=== PATIENT | female | born 1985 | race Caucasian/White ===

== ENCOUNTER 2024-10-31 09:55 | Emergency (ER) | payer BC, SELFPAY ==
[2024-10-31 10:06] VITALS: BP 120/87
[2024-10-31] MEDS: DECADRON 10 MG PO (10:50)
[2024-10-31 10:51] VITALS: BMI 24.9
--- NOTE | 2024-10-31 12:16 | ED.SKININJ ---
HPI-Injury
General
Chief Complaint: Bite
Source: patient
Exam Limitations: none
Time Seen by Provider: 10/31/24 10:17
Nursing documentation reviewed up to this point in time: agreed with
History of Present Illness-Injury
Is this injury a work related problem?: No
Is pt an associate of [facility]?: No
Initial Injury comments:
39-year-old female presenting to the emergency department today with concerns of rash mainly to her left forearm over the past few days believe this was from some type of insect bite she believes was a spider but never visualize the spider
specifically. Mainly has been itchy denies any pain saw her primary care doctor 3 days ago they started her on Bactrim. The redness and swelling has been persisting. Still ongoing itchiness no pain no fevers no systemic symptoms.
Past History
Past History
ED Past Medical History: None
ED Past Surgical History: None
Social History
Living: with family
Employment: Employed
Review of Systems
Review of Systems
Allergies reviewed?: Yes
All Other Systems: ROS reviewed and negative except as documented in HPI and ROS
Phy Exam
Physical Exam
Physical Exam:
GENERAL: Alert , in no apparent distress
EYE: pupils equal and reactive
NECK: Supple, no significant adenopathy.
ENT: o/p clr, mmm.
CARDIAC: Regular rate and rhythm .
LUNGS: Clear breath sounds bilaterally, no acute respiratory distress, no wheezes/rales/rhonchi
ABDOMEN: Soft, without focal tenderness, no r/g, no cvat
NEUROLOGICAL: Alert and oriented, no focal neuro deficits
SKIN: Rash to the left forearm roughly 8 x 5 cm in total size vague demarcation, no tenderness no fluctuance or induration. Warm and dry, skin intact.
MUSCULOSKELETAL: No edema, well perfused.
PSYCH: Normal and appropriate interaction.
Course
Orders/Labs/Results
Orders:
Orders
10/31/24 10:27
Dexamethasone [Decadron] 10 mg PO NOW STA
Vital Signs
Initial and Last Documented VS:
Initial Vital Signs
Temp Pulse Resp BP Pulse Ox
98.6 F 89 16 120/87 98
10/31/24 10:06 10/31/24 10:06 10/31/24 10:06 10/31/24 10:06 10/31/24 10:06
Last Documented Vital Signs
Temp Pulse Resp BP Pulse Ox
98.6 F 89 16 120/87 98
10/31/24 10:06 10/31/24 10:06 10/31/24 10:06 10/31/24 10:06 10/31/24 10:06
MDM/Problems Addressed
MDM/Problems Addressed:
39-year-old female presenting with rash mainly to the left forearm small area to the right forearm. Mainly itchy no tenderness no fluctuance or induration appears most consistent with allergic skin reaction. Less consistent with infection already
is taking Bactrim started on steroid otherwise stable for discharge. Return precautions given.
*Pulse Oximetry
SaO2: 98
Oxygen Mode of Delivery: Room air
Patient hypoxic: no (98)
*Critical Care Note
Total Time (30-74mins, 75-104mins- exclusive of procedures): Not Applicable
ED Attending Note
-
Portions of this chart may have been created with voice recognition software.� Occasional wrong word or��sound alike� substitutions may have occurred due to the inherent limitations of voice recognition software.
Discharge Plan
Departure
Patient Disposition: Home (Routine Discharge)
Date of Disposition: 10/31/24
Time of Disposition: 12:17
Patient with high blood pressure during this ER visit?: No
Condition: Good
Covid-19: Not Applicable
Discharge Problem:
Skin rash
Instructions: Skin rash - ED discharge instructions
Prescriptions:
New
methylprednisolone [Medrol (Iron)] 4 mg tablets,dose pack
See Rx Instructions .ROUTE .COMPLEX Qty: 21 0RF
Rx Instructions:
for 6 days
No Action
acetaminophen 325 mg Tablet
650 mg PO Q4HPRN PRN (Reason: mild pain) Qty: 0 0RF
ibuprofen 600 mg Tablet
600 mg PO Q6HPRN PRN (Reason: moderate pain/cramps) Qty: 0 0RF
Referrals:
Becky Crandall DO [Family Provider, Family Practice]
Activity Restrictions/Additional Instructions:
You came to the emergency department today with concerns of a rash to your arms bilaterally. This appears to be most likely consistent with an inflammatory reaction. Please take the prescribed steroid and keep the area clean and covered. Return
for any worsening, new or concerning symptoms.
Interventions
Interventions:
*Risk Screen - Suicide Last Done: 10/31/24 10:06
*General Assessment Last Done: 10/31/24 10:51
*Neglect/Abuse Screening Last Done: 10/31/24 10:06
*ED- Fall Risk Assessment Last Done: 10/31/24 10:51
*ED COVID-19 Vaccine History Last Done: 10/31/24 10:51
ED-Skin Assessment Last Done: 10/31/24 10:51
Discharge Date and Time
Print Language: DOMINICAN
[2024-10-31 12:29] VITALS: BP 121/70
== END 2024-10-31 12:30 | disposition home or self-care (01) ==
LOC: EMR 09:55
PROVIDERS: EMERGENCY PHYSICIAN Student in an Organized Health Care Education/Training Program; FAMILY PHYSICIAN Family Medicine
DX: R21 Rash and other nonspecific skin eruption (principal)
CPT/HCPCS: 99283